=== PATIENT | male | born 1975 | race African-American/Black ===

== ENCOUNTER 2016-03-26 15:17 | Emergency (ER) | payer MEDICAID ==
[~2016-03-26] VITALS: Wt 119.0 kg
[2016-03-26] MEDS ORDERED: KETOROLAC 60 MG INJ IM STA (16:35)
--- NOTE | 2016-03-26 16:49 | ERD ---
ER Documentation Chief Complaint Date/Time DATE: 03/26/16 TIME: 16:25 Chief Complaint UPPER BACK PAIN FOR 6 DAYS. NO TRAUMA. SITTING FOR LONG PERIODS LAST WEEK HPI 40 y/o male presents to ED for reproducing mid and lower back pain for about 6 days. Pain was described as achy non-radiating with a rate of 8/10 at this time. When asked if this has happened before, he replied that this has happened a few months ago. Denies headache, loss of consciousness, dizziness, blurry vision, changes in vision, photophobia, facial pain, ear pain, throat pain, difficulty swallowing, neck pain, shoulder pain, chest pain, cough, hemoptysis, abdominal pain, loss of appetite, nausea, vomiting, hematochezia, diarrhea, constipation, urinary symptoms, hematuria, bladder and bowel incontinences, extremity weakness, extremity tenderness, trauma, numbness or tingling sensation, difficulty walking , recent travel, recent exposure to illness, recent antibiotic use in the last 3 months, fever, chills. Allergy: NKA PMH: Denies. Medications: Denies. Surgery: Denies. Family history: Denies family history of cardiac disease, sudden before the age of 50, heart attack before the age of 50. 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 Occasional drinks alcoholic beverages. Denies smoking, use of illegal drugs. ROS All systems reviewed and are negative except as per history of present illness. PMhx/Soc Medical and Surgical Hx: pt denies Medical Hx, pt denies Surgical Hx History of Surgery: No Anesthesia Reaction: No Hx Neurological Disorder: No Hx Respiratory Disorders: No Hx Cardiac Disorders: No Hx Psychiatric Problems: No Hx Miscellaneous Medical Probl: No Hx Alcohol Use: No Hx Substance Use: No Hx Tobacco Use: No Physical Exam Vitals Vital Signs Date Time Temp Pulse Resp B/P Pulse Ox O2 Delivery O2 Flow Rate FiO2 03/26/16 15:20 98.7 88 20 136/74 99 Physical Exam CONSTITUTIONAL: Well-appearing; well-nourished; in no apparent distress. HEAD: Normocephalic; atraumatic. EYES: Conjunctiva clear, sclera non-icteric, EOM intact. PERRL Ears: Hearing intact. EACs clear, TMs non-bulging, non-inflamed, translucent & mobile, ossicles normal appearance, No obstructions, no erythema, no discharges Nose: No obstructions. No polyps. No external lesions. Mucosa non-inflamed. No external lesions, septum and turbinates normal. No rhinorrhea. No discharges. Frontal sinus is non-tender to palpation. Maxillary sinus is non-tender to palpation. MOUTH: Moist mucous membranes, no lesion, no obstructions, no vesicles, no thrush, patent airway Throat: Uvula in midline. Right tonsil is +1 with no erythema, no exudate. Left tonsil is +1 with no erythema, no exudate. Tolerating secretions well. Good gag reflex. Patent airway. Neck: Supple, without lesions, bruits, or adenopathy. No mass. Thyroid non- enlarged and non-tender to palpation. CHEST: Symmetrical chest. Respirations even and not labored. No retractions noted. CARDIOVASCULAR: Normal S1, S2. RRR. No murmurs, gallops. RESPIRATORY: Normal chest excursion with respiration; breath sounds clear and equal bilaterally; no wheezes, rhonchi, or rales. Breathing even and unlabored. Speaking in clear, full, and complete sentences w/ ease. ABDOMEN: Normal bowel sounds normal. Soft, round, non-distended, non-guarding, no tenderness, no rebound, no organomegaly, no masses, no pulsating abdominal mass. No hernia. No peritoneal signs. : No CVA tenderness. BACK: Symmetrical shoulder. Spine is midline without deformity, tenderness. No evidence of trauma or deformity. PELVIS: Stable pelvis. No evidence of trauma or deformity. MUSCULOSKELETAL: Normal gait and station. No misalignment, asymmetry, crepitation, defects, tenderness, masses, effusions, decreased range of motion, instability, atrophy or abnormal strength or tone in the head, neck, spine, ribs , pelvis or extremities. Mid/lower back pain during range of motion of the spine. No obvious swelling. No calf tenderness. NEUROVASCULAR: Distal pulses are present. Pedal pulse are present, equal, and normal. Capillary refills are < 2 seconds. NEUROLOGIC: Alert and oriented x4. Speaks full and clear sentences. Cranial Nerves II-XII normal. Sensation to pain, touch, and proprioception normal. Grossly unremarkable. No neurologic deficits. Romberg test is negative. PSYCHOLOGICAL: The patients mood and manner are appropriate. No hallucinations , delusions. Not SI. Not HI. Has the capacity to decide for self SKIN: Normal for age and ethnicity; warm; dry; good turgor; no apparent lesions or exudates. No rashes, hives, discoloration. Intact. Procedures/MDM Examination: Please see physical examination. Disease process, medical treatment was explained to the patient. He verbalized understanding and agreed with the diagnostic tests, medical treatment, and follow-up care. Treatment: Toradol IM. Re-evaluation: Relieve the pain. Consultation: None. Case, patient's history, my physical findings were discussed with supervising emergency room physician, Dr. Carlos Cordova who agreed with my present treatment and plan of care. Differential diagnosis: Low back pain versus low back strain versus musculoskeletal pain Medical decision [id number] y/o male presents to ED for reproducing mid and lower back pain for about 6 days. Pain was described as achy non-radiating with a rate of 8/10 at this time. When asked if this has happened before, he replied that this has happened a few months ago. Patient's complaint, patient' s history, my physical findings are consistent with my final diagnosis of low back pain, musculoskeletal pain. Patient refuses diagnostic imaging stating that he already has this pain for and could be managed with pain medication. Medications prescribed are the following: Motrin. Flexeril. Patient and family member are made aware of the side effects and adverse reactions of the medications prescribed. Instructed on when to seek emergent and medical attention in case allergic/anaphylactic reactions or severe side effects and or adverse reactions to medications. Patient and family member verbalized understanding. Patient instructed Instructed to follow-up with his PCP in 24-48 hours. Instructed to Call 911 for chest pain, shortness of breath. Advised to come back here in ED as soon as possible for severity of symptoms which includes but not limited to: any new symptoms; shortness of breath/difficulty of breathing; cardiovascular changes; severe gastrointestinal symptoms; signs and symptoms of bleeding and or infection; signs of compartment syndrome/neurovascular changes; neurological changes/deficits. Patient and family member verbalized understanding. Upon discharge, patient is alert and oriented x 4, speaks full and clear sentences, denies pain, has no neurological deficits, has no neurovascular deficits, difficulty of breathing. Breathing even and unlabored. Lung sounds are clear to auscultation. Not in distress. Appears comfortable. Ambulatory with steady gait. Appears satisfied with care provided here in ED. Departure Diagnosis: Primary Impression: Back pain Back pain location: low back pain Chronicity: unspecified Back pain laterality: unspecified Sciatica presence: unspecified whether sciatica present Qualified Code: M54.5 - Low back pain, unspecified back pain laterality, unspecified chronicity, with sciatica presence unspecified Condition: Good Additional Instructions: Follow-up with PCP in the next 24-48 hours. Patient was provided with community resources. UCHE BERMEO Mar 26, 2016 16:48
[2016-03-26] MEDS ORDERED: IBUP800T25 PO (16:50)
[2016-03-26] MEDS ORDERED: CYCL-319 PO (16:51)
== END 2016-03-26 17:17 | disposition home or self-care (01) ==
LOC: FTE 15:17
DX: M54.5 Low back pain (principal)
CPT/HCPCS: 96372; J1885; Z7502